=== PATIENT | female | born 1970 | race Caucasian/White ===

== ENCOUNTER 2019-01-23 09:52 | Emergency (ER) | payer MEDICAID ==
[~2019-01-23] VITALS: Ht 160 cm; Wt 61.2 kg
[2019-01-23 09:57] VITALS: Ht 160 cm; Wt 61.2 kg
[2019-01-23 14:00] VITALS: BP 109/65
== END 2019-01-23 14:46 | disposition left against medical advice (07) ==
LOC: ED 09:52
DX: G43.909 Migraine, unspecified, not intractable, without status migrainosus (principal); R68.83 Chills (without fever); F41.0 Panic disorder [episodic paroxysmal anxiety]; F17.210 Nicotine dependence, cigarettes, uncomplicated; Z88.8 Allergy status to other drugs, medicaments and biological substances
CPT/HCPCS: 99406; G0480; J1885; Q0162